=== PATIENT | male | born 1955 | race Caucasian/White ===

== ENCOUNTER 2016-06-15 05:49 | Inpatient (IN) | payer MEDICARE, BC ==
[~2016-06-15] VITALS: Ht 182.9 cm; Wt 74.5 kg
--- NOTE | ~2016-06-15 | HP ---
PATIENT'S NAME: THERON NICE [facility] AGE: 61 Y [address] ROOM: [place] [address] LOCATION: [facility] ADMIT DATE: 06/15/2016 History & Physical DISCHARGE DATE: FAMILY PHYSICIAN: PHYSICIAN, UNKNOWN ATTENDING PHYSICIAN: Ariella Montague DATE OF SERVICE: 06/15/2016 REASON FOR REFERRAL: Intracranial hemorrhage. PATIENT IDENTIFICATION: Theron Nice is a 61-year-old male. PRESENTING COMPLAINT: Fall. HISTORY OF PRESENT ILLNESS: The patient was found on the floor of his home by his caregiver. It appears he has fallen on his head and was unconscious for the time he was found by the caregiver. The caregiver then contacted the patient's daughter, who came to the house. When the daughter arrived, the patient had come to, but was still groggy. She then brought the patient to the ER in [place]. A head CT scan was performed and it showed some intracranial bleed, see below. The patient was transferred to [facility] for evaluation and treatment. The patient has been noted to be having more frequent falls lately and has been unsteady on his feet. It was on account of these safety concerns that a house keeper was hired to help and watch the patient had nighttime and it was this brigadier who found him having fallen last night. PAST MEDICAL HISTORY: Significant for mitochondrial disorder. As a result, mitochondrial disorder the patient gets tired after minimal exertion. He also has chronic pain. He has had a morphine pump placed for this pain and the morphine pump contains bupivacaine, Dilaudid, and baclofen. The patient also takes baclofen by mouth. OTHER MEDICATIONS: Please see chart. He takes Abilify, TestoGain, duloxetine, bupropion, B12 [id number], Mucinex. ALLERGIES: PATIENT'S NAME: THERON NICE [facility] AGE: 61 Y [address] ROOM: [address] [address] LOCATION: [facility] ADMIT DATE: 06/15/2016 History & Physical DISCHARGE DATE: FAMILY PHYSICIAN: PHYSICIAN, UNKNOWN ATTENDING PHYSICIAN: Ariella Montague PENICILLIN AND HYDROCODONE. REVIEW OF SYSTEMS: A 10-point review of systems was carried out. The only abnormal findings as described in the history of present illness. FAMILY HISTORY: No family history of similar problems. SOCIAL HISTORY: The patient lives by himself with the caregiver at night time. The daughter lives close by. She works as an x-ray poultry field service technician. PHYSICAL EXAMINATION: GENERAL: The patient was initially asleep, but he awoke easily. VITAL SIGNS: Blood pressure 136/80 and pulse rate 79. NEUROLOGICAL: The patient was initially asleep, but he woke up when I started talking to him. He knew he was in [place] before he was in [place]. He did not know the date. Speech: His speech is coherent. Cranial nerves: No deficits seen. Motor examination: The patient moves all his extremities with normal strength. Gait not tested. CARDIOVASCULAR: Heart sounds present. RESPIRATORY: The patient is not short of breath at bedside. EXTREMITIES: The patient bruises easily and has scrapes to his left hand. ABDOMEN: There is a morphine pump in the left lower quadrant of the abdomen. HEENT: Head: There is a bump to the left side of the patient's head with some Steri-Strips on it. The patient has some nose bleeding, but this is cleared up now. REVIEW OF IMAGING STUDIES: The patient has had a head CT scan performed at [facility] in [place], [place]. The CT head shows a small amount of blood in the right temporal lobe vessels volume artifact definitely, there is some blood in the ambient cistern posteriorly, there is no hydrocephalus. There is also some blood in the sinuses. Cervical spine CT, no acute injury is seen. ASSESSMENT: A 61-year-old male with history of fall and intracranial bleed. Currently, the patient is lethargic but he is easily arousable and stays awake and follows commands. MEDICAL DECISION MAKING: The patient is being admitted for observation. I do not anticipate that there PATIENT'S NAME: THERON NICE [facility] AGE: 61 Y [address] ROOM: [id number] [place], [place] [address] LOCATION: [facility] ADMIT DATE: 06/15/2016 History & Physical DISCHARGE DATE: FAMILY PHYSICIAN: PHYSICIAN, UNKNOWN ATTENDING PHYSICIAN: Ariella Montague will be any reason for neurosurgical intervention. We will decide on placement when the patient is ready to go home. MD SCOTT VIERA/jostin /[id number] D: [id number] T: [id number] HISTORY & PHYSICAL
--- NOTE | ~2016-06-15 | ER ---
PATIENT'S NAME: THERON ROBLERO [facility] AGE: 61 Y [address] ROOM: [id number] [place], [place] [address] LOCATION: [facility] ADMIT DATE: 06/15/2016 ER/Outpatient Report DISCHARGE DATE: FAMILY PHYSICIAN: PHYSICIAN, UNKNOWN ATTENDING PHYSICIAN: Ariella Montague CHIEF COMPLAINT: Fall. HISTORY OF PRESENT ILLNESS: The patient fell approximately midnight at his home residence in [place]. He was seen at a local hospital where laboratory and CT scans were obtained and was diagnosed with a head bleed. He was transferred by ambulance here. 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 He did have some open injuries on the head and arm that were repaired, and he was transferred here for neurosurgical evaluation. PAST MEDICAL HISTORY: As noted above and documented in the record and reviewed by me. Medical history including medications and allergies were also documented on the record and reviewed by me. REVIEW OF SYSTEMS: All systems were reviewed and negative except as noted in the HPI. PHYSICAL EXAMINATION: VITAL SIGNS: On arrival, blood pressure 147/83, pulse 86, respiratory rate is 18, temperature 97.1, SpO2 is 96% on room air. GENERAL: Age-appropriate male in no obvious pain or distress, sitting in a semi-recumbent position on the exam table, in no obvious pain or distress. NEURO: The patient is awake, he is oriented to person and situation, but not to the location. He does not recall the events in question leading to his arrival. He does not know the date. On the neurologic exam, the patient follows commands in all extremities with no obvious asymmetry or deficits. HEENT: The patient has a large hematoma in the left scalp with some Steri- Strips and periorbital ecchymosis on the left side. The head is otherwise normal to inspection and palpation. The eyes are PERRL. The oropharynx is clear. No malocclusion. NECK: Supple. Trachea is midline. No neck is tenderness though. CHEST: Heart is regular rate and rhythm with no murmurs. LUNGS: Clear to auscultation bilateral with no rhonchi, wheezes, or rales. ABDOMEN: Soft, nontender, and nondistended. No rebound or guarding. BACK: Deferred. PATIENT'S NAME: THEORN ROBLERO [facility] AGE: 61 Y [address] [id number] [address] LOCATION: [facility] ADMIT DATE: 06/15/2016 ER/Outpatient Report DISCHARGE DATE: FAMILY PHYSICIAN: PHYSICIAN, UNKNOWN ATTENDING PHYSICIAN: Ariella Montague EXTREMITIES: Warm and well perfused. SKIN: There are some skin tears in the left forearm. LABS AND X-RAYS: labs including coags were ordered. IMPRESSION: 1. Mechanical fall. 2. Basilar cistern, traumatic subdural hematoma. 3. Chronic pain syndrome with implanted pain pump. 4. Multiple contusions of the head and left forearm. EMERGENCY DEPARTMENT COURSE: The patient was seen and evaluated as above. I received and reviewed his films on the individual computer as there are difficulties in uploading them to the system. I reviewed his labs from prior to arrival and there are no significant abnormalities other than an elevated CO2 of 37.5. Sodium and potassium were within appropriate limits. I did consult Dr. Montague, neurosurgeon, to evaluate the patient. The patient will be admitted to his service for further evaluation and treatment of his intracranial hemorrhage. All questions were answered for the family to the best of my ability prior to taking the patient to the hospital bed. MD LEONARDO JOSE/jostin /[id number] d: 06/15/16 1101 t: 06/23/16 2145, OUTPATIENT REPORT
--- NOTE | ~2016-06-15 | DS ---
PATIENT'S NAME: THERON ROBLERO [facility] AGE: 61 Y [address] ROOM: [facility] [place], [place] [address] LOCATION: [facility] ADMIT DATE: 06/15/2016 Discharge Summary DISCHARGE DATE: 06/18/2016 FAMILY PHYSICIAN: Addison Santiago MD ATTENDING PHYSICIAN: Ariella Montague REASON FOR ADMISSION: The patient had a fall with some loss of consciousness. He was taken to the emergency room in [place], [place], and head CT scan showed intracranial hemorrhage for which he was transferred to [facility] for treatment. On examination, the patient was easily arousable, and his speech was coherent. He moved all his extremities well. He had bruises to his left hand and a bump to the left side of his head. Imaging studies showed a small intracranial hemorrhage, not large enough to need surgery. TREATMENT RENDERED: The patient was admitted for observation and his condition gradually improved. By the 18 of June, he was well enough to go home, and he was discharged on that day. At the time of discharge, he was lucid and fully responsive. FINAL DIAGNOSIS: Traumatic intracranial hemorrhage from fall. FOLLOW-UP PLANS: Arrangements were made for the patient to follow up with Dr. Seth Easley for pain control. He does have a morphine pump for a mitochondrial disorder, which causes him weakness and pain. MD ALLYN VIERAO/jostin /[id number] d: 07/05/160 t: 07/05/162000, DISCHARGE SUMMARY
--- NOTE | 2016-06-15 10:38 | NUR ---
61 Y/O MALE ADMITTED FOR TRAUMATIC INTRACRANIAL BLEED R/T A FALL LAST NIGHT AT HIS HOME. PT WAS GETTING UP TO GET SOME IBUPROPHEN WHEN HE FELL. CURRENTLY PT IS VERY TIRED & DROWSY, C/O SEVERE PAIN IN HIS HEAD, NECK, BACK & LEGS. PT IS ALERT & ORIENTED BUT VERY TIRED CURRENTLY ALLERGIES - PENICILLINS, & HYDROCODONE MEDICAL & SURGICAL HISTORY - LASIK, LT CATARACT W/ IOLI, RT BROKEN ANKLE WITH HARDWARE, RT TKA X2, PAIN PUMP INSERTION. PT HAS MITOCHONDRIAL SYNDROME/DISEASE, NOCTURNAL MYOCLONUS, SEVERE MUSCLE SPASMS & RIGIDNESS, ALSO HAS BECOME INCREASINGLY FORGETFUKL OVER THE PAST FEW YEARS PER HIS DAUGHTER. 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 SEE ADMISSION PART ONE FOR FURTHER PT HISTORY. REPORT GIVEN TO PT PRIMARY CARE NURSE RICHY RN ADM EDUCATION COMPLETED WITH PT DAUGHTER KEVEN
--- NOTE | 2016-06-15 13:00 | NUR ---
Introduced self and role of care management to patient's daughter as patient is resting. Patient lives alone in [place], [place]. He has a "caregiver" who stays with him at night. Daughter says with his underlying disease process he has more problems with falling asleep and falling in the evening and night. Daughter stays with him a couple of nights a week and the "caregiver" stays the other nights. She says she thinks they may have to put an alarm on his bed as he isn't letting them know as well as he did that he needs to get up. She says most of the time he does OK during the day and is able to cook his meals, clean, mow his grass etc. However she says on the days he doesn't do well he can't do much. She says Dr. Montague talked to her about rehab. We talked briefly about rehab. She doesn't know if he would benefit from rehab or not. We will see how he does. Will follow.
[2016-06-15] MEDS ORDERED: LASIX40 MG PO ×2 (13:56)
[2016-06-15] MEDS ORDERED: ARIPIPRAZOLE5 MG PO (13:56)
[2016-06-15] MEDS ORDERED: TAMSULOSIN HCL0.4 MG PO (13:57)
[2016-06-15] MEDS ORDERED: LEVOTHROID (SY50 MCG PO (13:57)
[2016-06-15] MEDS ORDERED: LIORESAL DS20 MG PO (13:57)
[2016-06-15] MEDS ORDERED: ALDACTONE25 MG PO (13:58)
[2016-06-15] MEDS ORDERED: WELLBUTRIN XL300 M2 PO (13:58)
[2016-06-15] MEDS ORDERED: [UNRECOGNIZED DRUG - OTHER] PO (13:59)
[2016-06-15] MEDS ORDERED: VITAMIN B-12500 MCG PO (13:59)
[2016-06-15] MEDS ORDERED: [UNRECOGNIZED DRUG - CODE] PO (14:01)
[2016-06-15] MEDS ORDERED: MINIPRESS1 M1 PO (14:04)
[2016-06-15] MEDS ORDERED: K-TAB 10MEQ10 MEQ PO (14:04)
[2016-06-15] MEDS ORDERED: CYMBALTA60 MG PO (14:04)
[2016-06-15] MEDS ORDERED: OMEPRAZOLE40 MG PO (14:05)
[2016-06-15] MEDS ORDERED: MIRALAX17 GM PO (14:05)
[2016-06-15] MEDS ORDERED: PAIN PUMP (14:07)
--- NOTE | 2016-06-15 18:41 | NUR ---
Significant Event: Drowsy but arouses to sound. Oriented and conversational. Complains of feeling tired. Equal strength in all extremities. Chronic pain at baseline level and tolerable to patient. Pt's daughter at bedside this AM was very knowledgeable about patient's history. Up to BSC with 1PA. Denies complaints/needs. Follow up: continue
--- NOTE | 2016-06-16 05:02 | NUR ---
A/Ox3. Continues to be drowsy with some forgetfulness. No neurological changes during shift. SR with HR 60-80s. Afebrile. Continues on 2L NC with o2 sats in mid 90s. No BM this shift. Follow up: Continue to monitor Neuro status.
--- NOTE | 2016-06-16 16:56 | NUR ---
Significant Event: A&O x3. Drowsy most of the day. Weakness throughout. PRN morphine given x1 for breakthrough pain. On 2L NC. Daughter at bedside. Follow up: Continue
--- NOTE | 2016-06-16 23:46 | NUR ---
Patien to be transferred to NTU. VSS. Pain pump- did not want to use pain pump with last check. A/O x3. Slow with responses. Up to commode with 1 assist, xl bowel movement. No family or visitors this shift. Fisher catheter. Refused bath. Continue to monitor on NTU.
--- NOTE | 2016-06-17 07:16 | NUR ---
Significant event: Patient is alert and oriented x 3. Forgetful at times. Pain controlled with pain pump-may have medication Q2H. Pump is to left abdomen. Moves spontaneously and follows commands. Generalized weakness. Fragile skin. Scattered bruising. 1PA, gait belt, walker. Fisher catheter draining yellow urine without complications. Bowel sounds active. Last BM yesterday. IV infusing NS without complications. On 2L O2 via NC. Lungs clear and diminished. SB-SR. Afebrile. Follow up: pain management, alarms at all times, monitor neuro status
--- NOTE | 2016-06-17 13:30 | NUR ---
Spoke with patient and his daughter regarding discharge plans. Daughter says she is not sure yet. She says Dr. Herrera hasn't told them yet if should go to rehab or not. Talked with her regarding inpt. rehab and the therapy requirements. She says there is no way her Dad could handle the required therapy. SHe says he will probably go home. She says she is comfortable with him going home. She says as long as he remembers to not get up himself they will be fine at home. She does want to talk to Dr. Montague and see what he recommends. Will follow.
--- NOTE | 2016-06-17 17:15 | NUR ---
Significant Event: a/o x 3. c/o pain that is "all over". administers dilaudid per pain pump to left abdomen for pain management. equal strength throughout. denies numbness/ tingling. PERRLA. tele with NSR. does wear 2 liters of oxygen at night per home. Is suppose to wear bipap at night at home but refuses. Tele with NSR. heart rate bradycardic at times. takes meds whole. regular diet. mckinney cath patent. DSG to left upper extremity from multiple skin tears changed with vaseline gauze, dry gauze over arm. ambulates with walker/gait belt and one assist. IV with normal saline infusing at 50ml/hr. plan- Dr. Montague to see patient, monitor for s/s of increase intracranial bleed.
--- NOTE | 2016-06-18 05:45 | NUR ---
Significant Event: The patient is Alert and Oriented x3. Denies Numbness and tingling. Moves all extremities spontaneously and to command. Up with 1 assist, gaitbelt, walker. VSS. On 3L oxygen per NC. PIV to the Right forearm infusing NS at 50ml/hr. Generalized pain-has pain pump in Left Abdomen, gave Morphine last at 0422. Bilateral arms bruised and have abrasions/skin tears. Bruising and abrasions to legs. Bruising to face and forehead. SOB with activity. Fisher draining yellow urine. Follow up:
--- NOTE | 2016-06-18 14:40 | NUR ---
Significant Event: Discharged to home. Left NTU at 1400 per w/c accompanied by transport staff. to be driven home per private vehicle by his Mother. Pain was tolerable after PO valium administered this am. this nurse unable to get ahold of Dr. Easley, pain specialist. Patient stated he would follow up with Dr. Easley as needed. Ambulating with gait belt and SBA upon discharge to home.
== END 2016-06-18 14:08 | disposition disaster alternative care site (69) | DRG 83 ==
LOC: GACC 05:49 → GNTU 07:26 → GICU 07:26 → GNTU 06-16 23:57
PROVIDERS: ADMIT Neurological Surgery
PROC: 0T9B70Z Drainage of Bladder with Drainage Device, Via Natural or Artificial Opening (ICD-10-PCS; principal; 2016-06-15)
DX: S06.2X9A Diffuse traumatic brain injury with loss of consciousness of unspecified duration, initial encounter (principal); E88.40 Mitochondrial metabolism disorder, unspecified; G89.29 Other chronic pain; W18.30XA Fall on same level, unspecified, initial encounter
CPT/HCPCS: J2270; J7030